=== PATIENT | female | born 1995 ===

== ENCOUNTER 2022-04-23 11:45 | Emergency (ER) | payer SELFPAY ==
[~2022-04-23] VITALS: Ht 167.6 cm; Wt 8.2 kg
[2022-04-23] MEDS ORDERED: IBUP-1493 PO (13:08)
[2022-04-23] MEDS: ACETAMINOPHEN 500 MG TABLET PO ONE (13:13)
[2022-04-23] MEDS: TRAMADOL HCL 50 MG TABLET PO ONE (13:13)
[2022-04-23 13:20] VITALS: BP 124/81
== END 2022-04-23 13:23 | disposition home or self-care (01) ==
LOC: EDH 11:45
DX: S80.01XA Contusion of right knee, initial encounter (principal); X58.XXXA Exposure to other specified factors, initial encounter; Y93.89 Activity, other specified; Y92.89 Other specified places as the place of occurrence of the external cause; Y99.8 Other external cause status
CPT/HCPCS: 29505; 73562